=== PATIENT | female | born 1960 | race Hispanic/Latino ===

== ENCOUNTER → 2023-04-01 | Outpatient (CLI) | payer MEDICAID ==
[~2023-04-01] MED LIST: IOHEXOL 350 MG/ML 100ML INFUS..BTL IV ONE; METOPROLOL TARTRATE 1 MG/ML 5ML VIAL IV ONE
== END | disposition home or self-care (01) ==
LOC: RAH 10:51
PROVIDERS: ATTEND Student in an Organized Health Care Education/Training Program
DX: R07.9 Chest pain, unspecified (principal); M47.815 Spondylosis without myelopathy or radiculopathy, thoracolumbar region
CPT/HCPCS: 75574; J3490 ×2; Q9967

== ENCOUNTER 2023-11-17 20:19 | Inpatient (IN) | payer MEDICAID ==
[~2023-11-17] VITALS: Ht 147.3 cm; Wt 72.3 kg
[~2023-11-17 20:19] MED LIST changes: +AMLO-257 PO; +ASPI-1005 PO; +ATOR40TA69 PO; +CLOP-31 PO; +EMPA1TAB PO; +FURO20TA6 PO; +INSU100I3 SQ; +INSU100V12 SQ; -IOHEXOL 350 MG/ML 100ML INFUS..BTL IV ONE; +LEVO25CA4 PO; +METO25 PO; -METOPROLOL TARTRATE 1 MG/ML 5ML VIAL IV ONE; +PANT40TA54 PO
[2023-11-17 21:35] LABS: BASOPHILS # (AUTO) 0.07 K/uL (0.00-0.20); EOSINOPHILS % (AUTO) 2.8 % (0.0-8.0); IMMATURE GRANULOCYTE ABSOLUTE 0.02 K/uL (0-1); LYMPHOCYTES # (AUTO) 2.2 K/uL (1.0-4.8); LYMPHOCYTES % (AUTO) 30.3 % (21.0-51.0); MEAN CORPUSCULAR HEMOGLOBIN 28.4 pg (27.0-33.0); MEAN CORPUSCULAR HGB CONC 33.3 g/dL (32.0-36.0); MEAN CORPUSCULAR VOLUME 85.1 fL (79-99); MONOCYTES # (AUTO) 0.8 K/uL (0.1-1.0); MONOCYTES % (AUTO) 10.5 % (3.0-13.0); NEUTROPHILS % (AUTO) 55.1 % (40.0-77.0); PLATELET COUNT (AUTO) 338 K/uL (130-400); RED BLOOD CELL COUNT(AUTO) 3.88 MIL/uL (4.00-5.50); RED CELL DISTRIBUTION WIDTH 17.5 % (11.0-15.5); WHITE BLOOD COUNT (AUTO) 7.3 K/uL (4.8-10.8)
[2023-11-17 21:48] LABS: CREATININE 2.1 mg/dL (0.5-1.0); POTASSIUM 3.7 mmol/L (3.5-5.1)
[2023-11-17 21:55] LABS: ALBUMIN 3.2 g/dL (3.5-5.0); BILIRUBIN,TOTAL 0.9 mg/dL (0.2-1.0); TOTAL PROTEIN, SERUM 8.1 g/dL (6.0-8.3)
[2023-11-17 22:00] LABS: B-TYPE NATRIURETIC PEPTIDE 1210 pg/mL (0-100)
[2023-11-17] MEDS: ASPIRIN 81 MG EC TAB PO ONE (23:19)
[2023-11-17] MEDS: FUROSEMIDE 40MG VIAL IV ONE (23:19)
[2023-11-17] MEDS: NITROGLYCERIN 1GM OINT 1 INCH/1GM TD ONE (23:20)
[2023-11-18] MEDS ORDERED: ONDANSETRON 4MG INJ IV PRN (01:30)
[2023-11-18] MEDS ORDERED: HYDRALAZINE 20MG/ML VIAL IV PRN (01:30)
[2023-11-18] MEDS ORDERED: DEXTROSE 50%-WATER 50 ML DISP.SYRIN IV PRN (01:30)
[2023-11-18] MEDS ORDERED: GLUCAGON 1MG KIT 1 MG ML IM PRN (01:30)
[2023-11-18] MEDS ORDERED: ACETAMINOPHEN 325 MG TAB PO PRN ×2 (01:30)
[2023-11-18] MEDS ORDERED: POTASSIUM CHLORIDE 10% ELIXIR 20 MEQ/15 ML UDCUP PO PRN (01:30)
[2023-11-18] MEDS ORDERED: POTASSIUM CHLORIDE 20MEQ/100ML 100 ML IV PRN (01:30)
[2023-11-18] MEDS ORDERED: NITROGLYCERIN 0.4 MG SL TAB SL PRN (01:30)
[2023-11-18] MEDS: HEPARIN 5,000 UNIT VIAL SQ SCH (01:55)
[2023-11-18 02:15] VITALS: BP 143/75; PULSE 91; RESP 20
[2023-11-18] MEDS ORDERED: INSU100V12 SQ (02:53)
[2023-11-18 04:59] LABS: BASOPHILS # (AUTO) 0.06 K/uL (0.00-0.20); BASOPHILS % (AUTO) 0.8 % (0.0-5.0); EOSINOPHILS # (AUTO) 0.22 K/uL (0.00-0.70); EOSINOPHILS % (AUTO) 2.9 % (0.0-8.0); HEMATOCRIT 30.6 % (36-48); IMMATURE GRANULOCYTE ABSOLUTE 0.03 K/uL (0-1); LYMPHOCYTES # (AUTO) 2.2 K/uL (1.0-4.8); LYMPHOCYTES % (AUTO) 29.1 % (21.0-51.0); MEAN CORPUSCULAR HEMOGLOBIN 28.4 pg (27.0-33.0); MEAN CORPUSCULAR HGB CONC 32.7 g/dL (32.0-36.0); MEAN CORPUSCULAR VOLUME 86.9 fL (79-99); MONOCYTES # (AUTO) 0.6 K/uL (0.1-1.0); MONOCYTES % (AUTO) 8.3 % (3.0-13.0); NEUTROPHILS # (AUTO) 4.5 K/uL (1.8-7.7); NEUTROPHILS % (AUTO) 58.5 % (40.0-77.0); PLATELET COUNT (AUTO) 303 K/uL (130-400); RED BLOOD CELL COUNT(AUTO) 3.52 MIL/uL (4.00-5.50); RED CELL DISTRIBUTION WIDTH 17.6 % (11.0-15.5); WHITE BLOOD COUNT (AUTO) 7.7 K/uL (4.8-10.8)
[2023-11-18 05:31] LABS: HEMOGLOBIN A1C 8.4 % (4.0-6.0)
[2023-11-18 05:32] LABS: ALBUMIN 2.9 g/dL (3.5-5.0); BILIRUBIN,TOTAL 0.9 mg/dL (0.2-1.0); CREATININE 1.8 mg/dL (0.5-1.0); MAGNESIUM 2.2 mg/dL (1.80-2.40); POTASSIUM 3.3 mmol/L (3.5-5.1); THYROID STIMULATING HORMONE 3.56 uIU/mL (0.36-3.74); TOTAL PROTEIN, SERUM 7.2 g/dL (6.0-8.3)
[2023-11-18 05:43] LABS: B-TYPE NATRIURETIC PEPTIDE 1070 pg/mL (0-100)
[2023-11-18 08:00] VITALS: BP 112/62; PULSE 86; RESP 18
[2023-11-18] MEDS: FAMOTIDINE 20MG TAB PO SCH (08:51)
[2023-11-18] MEDS: ASPIRIN 81 MG EC TAB PO SCH (08:51)
[2023-11-18] MEDS ORDERED: FUROSEMIDE 20MG VIAL IV SCH (09:00)
[2023-11-18] MEDS: INSULIN HUMULIN R 100 UNIT/ML 3ML SQ SCH (11:30)
[2023-11-18 12:00] VITALS: BP 133/69; PULSE 95; RESP 18
[2023-11-18] MEDS: ZOSYN 3.375GM +NS 50ML IV SCH (12:02)
[2023-11-18 14:43] LABS: APPEARANCE,URINE CLEAR (CLEAR); BILIRUBIN,URINE NEGATIVE (NEGATIVE); COLOR,URINE LIGHT-YELLOW (YELLOW); GLUCOSE, URINE (UA) 30 mg/dL (NEGATIVE); KETONES,URINE NEGATIVE (NEGATIVE); LEUKOCYTE ESTERASE ,URINE NEGATIVE Leu/uL (NEGATIVE); NITRATE,URINE NEGATIVE (NEGATIVE); OCCULT BLOOD,URINE NEGATIVE (NEGATIVE); PROTEIN,URINE 10 mg/dL (NEGATIVE); UROBILINOGEN,URINE 0.2 mg/dL (0.2-1.0)
[2023-11-18 14:50] LABS: ADD UA MICROSCOPIC YES
[2023-11-18 14:53] LABS: BACTERIA,URINE RARE /HPF (None Seen); HYALINE CASTS, URINE 0-1 /LPF (0-1 /LPF); MUCUS,URINE RARE LPF (None Seen); RBC,URINE 0-1 /HPF (0-1); SQUAMOUS EPITHELIAL CELL,UR RARE /HPF (0-2); WBC,URINE 0-1 /HPF (0-1)
[2023-11-18 16:00] VITALS: BP 145/75; PULSE 92; RESP 19
[2023-11-18] MEDS: FUROSEMIDE 40MG VIAL IV SCH (17:38)
[2023-11-18 19:20] VITALS: O2SAT 95
[2023-11-18 20:00] VITALS: BP 145/79; PULSE 87; RESP 20
[2023-11-18] MEDS: CARVEDILOL 6.25 MG TABLET PO SCH (20:43)
[2023-11-18] MEDS: KCL 20 MEQ ERTAB PO PRN (20:44)
[2023-11-18] MEDS: SODIUM CHLORIDE 3% FOR INHALATION 4 ML/AMP VIAL.NEB IH ONE (23:56)
[2023-11-19] VITALS (8 sets, daily range): BP systolic 118–141; BP diastolic 66–78; PULSE 69–81; RESP 17–20; O2SAT 94–96
[2023-11-19 03:49] LABS: BASOPHILS # (AUTO) 0.06 K/uL (0.00-0.20); BASOPHILS % (AUTO) 0.8 % (0.0-5.0); EOSINOPHILS # (AUTO) 0.37 K/uL (0.00-0.70); EOSINOPHILS % (AUTO) 5.2 % (0.0-8.0); HEMATOCRIT 31.5 % (36-48); IMMATURE GRANULOCYTE ABSOLUTE 0.02 K/uL (0-1); LYMPHOCYTES # (AUTO) 2.1 K/uL (1.0-4.8); LYMPHOCYTES % (AUTO) 28.9 % (21.0-51.0); MEAN CORPUSCULAR HEMOGLOBIN 28.3 pg (27.0-33.0); MEAN CORPUSCULAR HGB CONC 32.4 g/dL (32.0-36.0); MEAN CORPUSCULAR VOLUME 87.3 fL (79-99); MONOCYTES # (AUTO) 0.8 K/uL (0.1-1.0); MONOCYTES % (AUTO) 11.5 % (3.0-13.0); NEUTROPHILS # (AUTO) 3.8 K/uL (1.8-7.7); NEUTROPHILS % (AUTO) 53.3 % (40.0-77.0); PLATELET COUNT (AUTO) 320 K/uL (130-400); RED BLOOD CELL COUNT(AUTO) 3.61 MIL/uL (4.00-5.50); RED CELL DISTRIBUTION WIDTH 17.4 % (11.0-15.5); WHITE BLOOD COUNT (AUTO) 7.1 K/uL (4.8-10.8)
[2023-11-19 04:26] LABS: % IRON SATURATION 7.9 % (22-44); ALBUMIN 2.9 g/dL (3.5-5.0); BILIRUBIN,TOTAL 1.1 mg/dL (0.2-1.0); PHOSPHORUS 5.1 mg/dL (2.5-4.9); POTASSIUM 4.2 mmol/L (3.5-5.1); THYROID STIMULATING HORMONE 3.74 uIU/mL (0.36-3.74); TOTAL PROTEIN, SERUM 7.4 g/dL (6.0-8.3); URIC ACID 8.7 mg/dL (2.6-7.2)
[2023-11-19] MEDS ORDERED: COMPOUND IV MISC 1 EACH IVSOLN MISC PRN (14:30)
[2023-11-19] MEDS: IRON SUCROSE COMPLEX 300 MG in 0.9% NACL 250ML 250 ML IV SCH (15:27)
[2023-11-20] VITALS (7 sets, daily range): BP systolic 114–141; BP diastolic 59–85; PULSE 66–114; RESP 17–19
[2023-11-20 04:28] LABS: HEMATOCRIT 30.9 % (36-48); MEAN CORPUSCULAR HEMOGLOBIN 27.2 pg (27.0-33.0); MEAN CORPUSCULAR HGB CONC 31.4 g/dL (32.0-36.0); MEAN CORPUSCULAR VOLUME 86.8 fL (79-99); RED BLOOD CELL COUNT(AUTO) 3.56 MIL/uL (4.00-5.50); RED CELL DISTRIBUTION WIDTH 17.2 % (11.0-15.5); WHITE BLOOD COUNT (AUTO) 6.6 K/uL (4.8-10.8)
[2023-11-20 04:47] LABS: MAGNESIUM 1.8 mg/dL (1.80-2.40); PHOSPHORUS 5.1 mg/dL (2.5-4.9); POTASSIUM 3.6 mmol/L (3.5-5.1)
[2023-11-20] MEDS: MAGNESIUM 2GM PREMIX 50ML 50 ML IV PRN (04:57)
[2023-11-20] MEDS: FAMOTIDINE 20MG TAB PO SCH (09:13)
[2023-11-20] MEDS: HYDRALAZINE 25MG TABLET PO SCH (09:13)
[2023-11-20] MEDS: ISOSORBIDE MONO 30MG SR TAB PO SCH (09:15)
[2023-11-21 04:00] VITALS: BP 138/71; PULSE 70; RESP 18
[2023-11-21 05:57] LABS: HEMATOCRIT 32.7 % (36-48); MEAN CORPUSCULAR HEMOGLOBIN 27.8 pg (27.0-33.0); MEAN CORPUSCULAR HGB CONC 31.5 g/dL (32.0-36.0); MEAN CORPUSCULAR VOLUME 88.1 fL (79-99); NUCLEATED RED BLOOD CELLS 0.2 % (0.0-0.19); RED BLOOD CELL COUNT(AUTO) 3.71 MIL/uL (4.00-5.50); RED CELL DISTRIBUTION WIDTH 17.3 % (11.0-15.5); WHITE BLOOD COUNT (AUTO) 8.5 K/uL (4.8-10.8)
[2023-11-21 06:14] LABS: ALBUMIN 2.8 g/dL (3.5-5.0); BILIRUBIN,TOTAL 0.8 mg/dL (0.2-1.0); MAGNESIUM 2.3 mg/dL (1.80-2.40); POTASSIUM 3.8 mmol/L (3.5-5.1); TOTAL PROTEIN, SERUM 7.3 g/dL (6.0-8.3)
[2023-11-21 08:00] VITALS: BP 133/67; PULSE 75; RESP 18
[2023-11-21] MEDS: Vitamin B Complex/Vit C/Folic Acid PO SCH (09:04)
[2023-11-21] MEDS: BUMETANIDE 1MG/4ML VIAL IVP SCH (09:06)
[2023-11-21] MEDS: HEPARIN 5,000 UNIT VIAL SQ SCH (09:10)
[2023-11-21 12:00] VITALS: BP 126/67; PULSE 76; RESP 17
[2023-11-21 16:00] VITALS: BP 133/73; PULSE 74; RESP 19
[2023-11-21 20:00] VITALS: BP 146/76; PULSE 75; RESP 19
[2023-11-22] VITALS (7 sets, daily range): BP systolic 122–142; BP diastolic 60–86; PULSE 67–78; RESP 16–20; O2SAT 95
[2023-11-22 03:44] LABS: HEMATOCRIT 30.3 % (36-48); MEAN CORPUSCULAR HEMOGLOBIN 27.7 pg (27.0-33.0); MEAN CORPUSCULAR HGB CONC 31.7 g/dL (32.0-36.0); MEAN CORPUSCULAR VOLUME 87.3 fL (79-99); NUCLEATED RED BLOOD CELLS 0.3 % (0.0-0.19); RED BLOOD CELL COUNT(AUTO) 3.47 MIL/uL (4.00-5.50); RED CELL DISTRIBUTION WIDTH 17.2 % (11.0-15.5); WHITE BLOOD COUNT (AUTO) 7.8 K/uL (4.8-10.8)
[2023-11-22 04:06] LABS: ALBUMIN 2.7 g/dL (3.5-5.0); BILIRUBIN,TOTAL 0.6 mg/dL (0.2-1.0); CREATININE 2.4 mg/dL (0.5-1.0); POTASSIUM 3.2 mmol/L (3.5-5.1)
[2023-11-22] MEDS: BUMETANIDE 1MG/4ML VIAL IVP SCH (09:00)
[2023-11-22 18:06] LABS: CREATININE 2.8 mg/dL (0.5-1.0); POTASSIUM 3.9 mmol/L (3.5-5.1)
[2023-11-23] VITALS (8 sets, daily range): BP systolic 119–156; BP diastolic 68–92; PULSE 65–77; RESP 16–20; O2SAT 95
[2023-11-23 05:43] LABS: ALBUMIN 2.9 g/dL (3.5-5.0); BILIRUBIN,TOTAL 0.7 mg/dL (0.2-1.0); CREATININE 3.1 mg/dL (0.5-1.0); MAGNESIUM 2.2 mg/dL (1.80-2.40); TOTAL PROTEIN, SERUM 7.3 g/dL (6.0-8.3)
[2023-11-23 20:41] LABS: ADD UA MICROSCOPIC YES; APPEARANCE,URINE CLEAR (CLEAR); BILIRUBIN,URINE NEGATIVE (NEGATIVE); COLOR,URINE YELLOW (YELLOW); GLUCOSE, URINE (UA) 200 mg/dL (NEGATIVE); KETONES,URINE NEGATIVE (NEGATIVE); LEUKOCYTE ESTERASE ,URINE NEGATIVE Leu/uL (NEGATIVE); NITRATE,URINE NEGATIVE (NEGATIVE); OCCULT BLOOD,URINE NEGATIVE (NEGATIVE); PROTEIN,URINE 50 mg/dL (NEGATIVE); UROBILINOGEN,URINE 0.2 mg/dL (0.2-1.0)
[2023-11-23 20:45] LABS: BACTERIA,URINE RARE /HPF (None Seen); MUCUS,URINE RARE LPF (None Seen); SQUAMOUS EPITHELIAL CELL,UR FEW /HPF (0-2); YEAST,URINE BUDDING FEW /HPF (None Seen)
[2023-11-24] VITALS (7 sets, daily range): BP systolic 102–157; BP diastolic 43–89; PULSE 67–79; RESP 17–19; O2SAT 94
[2023-11-24 03:57] LABS: BASOPHILS # (AUTO) 0.08 K/uL (0.00-0.20); BASOPHILS % (AUTO) 1.1 % (0.0-5.0); EOSINOPHILS # (AUTO) 0.36 K/uL (0.00-0.70); EOSINOPHILS % (AUTO) 4.9 % (0.0-8.0); HEMATOCRIT 30.5 % (36-48); IMMATURE GRANULOCYTE ABSOLUTE 0.03 K/uL (0-1); LYMPHOCYTES # (AUTO) 2.5 K/uL (1.0-4.8); LYMPHOCYTES % (AUTO) 33.6 % (21.0-51.0); MEAN CORPUSCULAR HEMOGLOBIN 27.9 pg (27.0-33.0); MEAN CORPUSCULAR HGB CONC 32.1 g/dL (32.0-36.0); MEAN CORPUSCULAR VOLUME 86.9 fL (79-99); MONOCYTES # (AUTO) 0.7 K/uL (0.1-1.0); NEUTROPHILS # (AUTO) 3.8 K/uL (1.8-7.7); PLATELET COUNT (AUTO) 284 K/uL (130-400); RED BLOOD CELL COUNT(AUTO) 3.51 MIL/uL (4.00-5.50); RED CELL DISTRIBUTION WIDTH 17.6 % (11.0-15.5); WHITE BLOOD COUNT (AUTO) 7.4 K/uL (4.8-10.8)
[2023-11-24 04:06] LABS: CREATININE 3.6 mg/dL (0.5-1.0); MAGNESIUM 2.5 mg/dL (1.80-2.40); PHOSPHORUS 5.1 mg/dL (2.5-4.9); POTASSIUM 3.8 mmol/L (3.5-5.1)
[2023-11-24 12:40] LABS: CREATININE,URINE RANDOM 36.88 mg/dL (30-135); PROTEIN,URINE RANDOM 33.4 mg/dL (0-11.9)
[2023-11-25] VITALS: BP 156/80; PULSE 76; RESP 18
[2023-11-25 04:00] VITALS: BP 141/78; PULSE 73; RESP 18
[2023-11-25 04:33] LABS: BASOPHILS # (AUTO) 0.05 K/uL (0.00-0.20); BASOPHILS % (AUTO) 0.7 % (0.0-5.0); EOSINOPHILS # (AUTO) 0.35 K/uL (0.00-0.70); EOSINOPHILS % (AUTO) 4.7 % (0.0-8.0); HEMATOCRIT 33.3 % (36-48); IMMATURE GRANULOCYTE ABSOLUTE 0.03 K/uL (0-1); LYMPHOCYTES # (AUTO) 2.4 K/uL (1.0-4.8); LYMPHOCYTES % (AUTO) 32.8 % (21.0-51.0); MEAN CORPUSCULAR HEMOGLOBIN 28.7 pg (27.0-33.0); MEAN CORPUSCULAR HGB CONC 32.1 g/dL (32.0-36.0); MEAN CORPUSCULAR VOLUME 89.3 fL (79-99); MONOCYTES # (AUTO) 0.6 K/uL (0.1-1.0); MONOCYTES % (AUTO) 7.7 % (3.0-13.0); NEUTROPHILS % (AUTO) 53.7 % (40.0-77.0); PLATELET COUNT (AUTO) 283 K/uL (130-400); RED BLOOD CELL COUNT(AUTO) 3.73 MIL/uL (4.00-5.50); RED CELL DISTRIBUTION WIDTH 18.1 % (11.0-15.5); WHITE BLOOD COUNT (AUTO) 7.5 K/uL (4.8-10.8)
[2023-11-25 04:49] LABS: CREATININE 2.6 mg/dL (0.5-1.0); MAGNESIUM 2.2 mg/dL (1.80-2.40); PHOSPHORUS 3.8 mg/dL (2.5-4.9); POTASSIUM 3.7 mmol/L (3.5-5.1)
[2023-11-25 07:30] VITALS: BP 144/88; PULSE 75; RESP 20
[2023-11-25 11:37] VITALS: O2SAT 96
[2023-11-25 11:47] VITALS: BP 141/87; PULSE 74; RESP 20
[2023-11-26] MEDS ORDERED: FUROSEMIDE 40 MG TABLET PO SCH (09:00)
== END 2023-11-25 13:55 | disposition left against medical advice (07) | DRG 469 ==
LOC: EDH 20:19 → EDHIP 20:20 → UNDOADMIN 11-18 01:14 → EDHIP 11-18 01:36 → 4DH 11-18 01:36
PROVIDERS: ADMIT Internal Medicine; ATTEND Internal Medicine
DX: N17.9 Acute kidney failure, unspecified (principal); I50.33 Acute on chronic diastolic (congestive) heart failure; I42.9 Cardiomyopathy, unspecified; I24.89 Other forms of acute ischemic heart disease; E11.22 Type 2 diabetes mellitus with diabetic chronic kidney disease; D64.9 Anemia, unspecified; E66.9 Obesity, unspecified; E78.00 Pure hypercholesterolemia, unspecified; I13.0 Hypertensive heart and chronic kidney disease with heart failure and stage 1 through stage 4 chronic kidney disease, or unspecified chronic kidney disease; I25.10 Atherosclerotic heart disease of native coronary artery without angina pectoris; N18.9 Chronic kidney disease, unspecified; Z95.1 Presence of aortocoronary bypass graft; Z79.82 Long term (current) use of aspirin; Z90.710 Acquired absence of both cervix and uterus; Z79.899 Other long term (current) drug therapy; Z90.49 Acquired absence of other specified parts of digestive tract; Z68.33 Body mass index [BMI] 33.0-33.9, adult; Z79.84 Long term (current) use of oral hypoglycemic drugs
CPT/HCPCS: 36415; 71045; 76770; 80048; 80053; 80061; 81001; 82550; 82570; 82728; 82948; 83036; 83540; 83550; 83735; 83880; 84100; 84145; 84156; 84443; 84484; 84550; 85025; 85027; 87040; 93005; 93306; 96374; G0378; J1644; J1756; J1815; J1940; J2543; J3475; J3490; J7050

== ENCOUNTER 2025-01-22 01:36 | Emergency (ER) | payer MEDICAID ==
[~2025-01-22] VITALS: Ht 149.9 cm; Wt 68.0 kg
[~2025-01-22 01:36] MED LIST changes: +ALBU18HF7 IH; -AMLO-257 PO; +CARV25TA77 PO; -CLOP-31 PO; -EMPA1TAB PO; -FURO20TA6 PO; -INSU100I3 SQ; -INSU100V12 SQ; +ISOS60TA77 PO; -LEVO25CA4 PO; -METO25 PO; -PANT40TA54 PO
[2025-01-22 02:01] LABS: APPEARANCE,URINE CLEAR (CLEAR); BILIRUBIN,URINE NEGATIVE (NEGATIVE); COLOR,URINE LIGHT-YELLOW (YELLOW); GLUCOSE, URINE (UA) 50 mg/dL (NEGATIVE); KETONES,URINE NEGATIVE (NEGATIVE); LEUKOCYTE ESTERASE ,URINE 250 Leu/uL (NEGATIVE); NITRATE,URINE NEGATIVE (NEGATIVE); OCCULT BLOOD,URINE NEGATIVE (NEGATIVE); PROTEIN,URINE 20 mg/dL (NEGATIVE); UROBILINOGEN,URINE 0.2 mg/dL (0.2-1.0)
[2025-01-22 02:12] LABS: ADD UA MICROSCOPIC YES
[2025-01-22 02:23] LABS: BACTERIA,URINE FEW /HPF (None Seen); MUCUS,URINE RARE LPF (None Seen); SQUAMOUS EPITHELIAL CELL,UR RARE /HPF (0-2); WBC,URINE 51-100 /HPF (0-1)
[2025-01-22] MEDS: cloNIDine HCL 0.2 MG TABLET PO ONE (02:56)
[2025-01-22 04:02] VITALS: BP 134/42; PULSE 72; RESP 18; TEMP 98.8; O2SAT 98
[2025-01-22] MEDS: hydrALAZine 20MG/ML VIAL IV ONE (04:02)
--- NOTE | 2025-01-22 04:14 | ERN ---
General Chief Complaint: Hypertension Stated Complaint: HIGH BLOOD PRESSURE Time Seen by MD: 02:02 Source: patient, family History of Present Illness Initial Comments Patient is a 64-year-old female with a known history of hypertension. She missed a dose of her medications and her family practice doctor recommended she come to the emergency room because her blood pressure was too high. Patient is asymptomatic except for the high blood pressure. Allergies: Coded Allergies: No Known Drug Allergies (Unverified Allergy, Unknown, 05/20/23) Home Meds Active Scripts Atorvastatin Calcium (LIPITOR) 40 Mg Tablet, 40 MG PO DAILY for 30 Days, #30 TAB 1 Refill Prov:YOLANDA LEVY MD 12/28/23 Carvedilol (Coreg) 25 Mg Tablet, 25 MG PO BID for 30 Days, #60 TAB 1 Refill Prov:YOLANDA LEVY MD 12/28/23 Aspirin (ASPIRIN 81MG CHEW TAB) 81 Mg Tab.chew, 81 MG PO DAILY, #30 TAB.CHEW 0 Refills Prov:EVE KING MD 06/04/23 Reported Medications Albuterol Sulfate (Ventolin Hfa) 90 Mcg Hfa.aer.ad, 2 PUFF IH DAILY PRN for whee zing for 30 Days, #18 GM 0 Refills 11/21/24 Isosorbide Mononitrate (Isosorbide Mononitrate ER) 60 Mg Tab.er.24h, 1 TAB PO DAILY for 30 Days, #30 TAB 0 Refills 07/02/24 Past Medical History Past Medical History: CAD, Diabetes-Type II, High Cholesterol, Heart Disease, Hypertension, Other Medical History Other: HX OF TRIPLE BYPASS Past Surgical History: Appendectomy, Hysterectomy, CABG, Other, Female( History) History: Not Applicable ROS Dictation Patient's review of systems is negative. She is here simply because of a measurement showing that her blood pressure is high. She has no symptoms from the hypertension. Results Laboratory and Microbiology Lab and Micro Result Laboratory Tests Test 01/22/25 01:48 Urine Color LIGHT-YELLOW (YELLOW) Urine Appearance CLEAR (CLEAR) Urine pH 6.0 (5.0-8.0) Urine Specific Yeoman 1.009 (1.001-1.031) Urine Protein 20 mg/dL (NEGATIVE) H Urine Glucose (UA) 50 mg/dL (NEGATIVE) H Urine Ketones NEGATIVE mg/dL (NEGATIVE) Urine Occult Blood NEGATIVE (NEGATIVE) Urine Nitrate NEGATIVE (NEGATIVE) Urine Bilirubin NEGATIVE mg/dL (NEGATIVE) Urine Urobilinogen 0.2 mg/dL (0.2-1.0) Urine Leukocyte Esterase 250 Jerel/uL (NEGATIVE) H Urine RBC 2-5 /HPF (0-1) H Urine WBC 51-100 /HPF (0-1) H Urine Squamous Epithelial Cells RARE /HPF (0-2) Urine Bacteria FEW /HPF (None Seen) MDM I will start by giving the patient some clonidine p.o. and then if that does not work we will start other medications as well. Orders written 4.2 mg clonidine p.o.. Patient's blood pressure dropped down to 134 about an hour after taking the clonidine. She can go home. ED Course Orders Procedure Category Date Status Time Urinalysis Profile LAB 01/22/25 Complete 01:50 Culture Urine MILI 01/22/25 In Process 02:12 Clonidine Hcl 0.2 Mg PHA 01/22/25 Complete Tablet (Catapres 0. 03:00 Hydralazine 20mg Inj PHA 01/22/25 Complete (Apresoline 20mg In 04:00 Current Medications Medications (Trade) Dose Ordered Sig/Marco Antonio Route PRN Reason Start Time Stop Time Status Last Admin Dose Admin Clonidine HCl (CATApres 0.2 MG TAB) 0.2 mg ONCE ONCE PO 01/22/25 03:00 01/22/25 03:01 DC 01/22/25 02:56 Hydralazine HCl (APRESOLine 20MG INJ) 20 mg ONCE ONCE IV 01/22/25 04:00 01/22/25 04:01 DC Vital Signs Date Time Temp Pulse Resp B/P (MAP) Pulse Ox O2 Delivery O2 Flow Rate FiO2 01/22/25 04:02 98.8 72 18 134/42 98 Room Air* 0 21 01/22/25 03:25 98.8 75 18 153/57 96 Room Air* 0 21 01/22/25 02:56 88 168/66 01/22/25 02:20 98.8 86 18 168/70 99 Room Air* 0 21 01/22/25 01:38 98.8 83 18 190/93 96 Room Air 0 DX & DISP Disposition: Discharge Departure Impression: Primary Impression: Hypertensive urgency Condition: Stable Additional Instructions: Please call your primary care physician if your blood pressure gets high and you need additional medications to help control it. Referrals: SELF,REFERRAL (PCP) ANTONIA PEREA MD Jan 22, 2025 04:14
== END 2025-01-22 04:30 | disposition home or self-care (01) ==
LOC: EDH 01:36
DX: I16.0 Hypertensive urgency (principal); I25.10 Atherosclerotic heart disease of native coronary artery without angina pectoris; E11.9 Type 2 diabetes mellitus without complications; E78.00 Pure hypercholesterolemia, unspecified; I10 Essential (primary) hypertension; Z79.82 Long term (current) use of aspirin; Z79.899 Other long term (current) drug therapy; Z90.49 Acquired absence of other specified parts of digestive tract; Z90.710 Acquired absence of both cervix and uterus; Z95.1 Presence of aortocoronary bypass graft
CPT/HCPCS: 81001; 87086; 87186; 99285